=== PATIENT | male | born 1965 | race Caucasian/White ===

== ENCOUNTER 2020-07-11 00:49 | Day surgery (SDC) | payer BC, SELFPAY ==
[2020-07-08 08:38] VITALS: BMI 43.3
--- NOTE | 2020-07-10 12:05 | PM.IMHP ---
H&P: HPI History of Present Illness Date/Time: 07/10/20 12:05 left foot and heel pain. Continues to be a problem with weight-bearing and activity. Unrelieved with previous injection, physical therapy, inserts and home stretching. Presents now for operative treatment. Chief Complaint: Left heel pain Review of Systems Constitutional: Constitutional: Denies fever(s) Eyes: Eyes: Denies blurry vision ENT: Reports Normal hearing present Cardiovascular: Cardiovascular: Denies chest pain and Denies dyspnea Respiratory: Respiratory: Denies dyspnea and Denies wheezing Gastrointestinal: Gastrointestinal: Denies abdominal pain Genitourinary: Genitourinary: Denies urinary urgency Musculoskeletal: Musculoskeletal: Reports as per HPI and Denies numbness Integumentary/Breasts: Skin/Breast: Denies changing lesions and Denies sores Neurologic: Reports Normal hearing present, Denies behavioral changes, Denies confusion, Denies numbness and Denies convulsions Psychiatric: Psychiatric: Denies behavioral changes, Denies confusion and Denies hallucinations Endocrine: Endocrine: Denies heat intolerance Hematologic/Lymphatic: Hematologic/Lymphatic: Denies easy bleeding Allergic/Immunologic: Allergic/Immunologic: Denies wheezing PMFSH Past Medical History Medical History Arthritis Depression Ganglion cyst of right foot High cholesterol Hypertension Intractable heel pain Plantar fasciitis of left foot Sleep disorder Vision abnormalities Weight gain Surgical History Surgical History H/O arthroscopy of right knee History of bladder repair surgery History of colonoscopy History of hernia repair History of knee surgery ACL repair S/P ACL reconstruction Family History Family History Other Arthritis Diabetes mellitus Hypertension Hypothyroidism Malignant neoplasm Social History Social History Smoking status: Never smoker Tobacco type: smokeless tobacco Smokeless tobacco user: chewing tobacco Alcohol intake: current Drinks per week: 8 Substance use: never Substance use type: does not use Gender identity (if verbalized by the patient): Male Spiritual care concerns: No Meds Home Medications and Allergies Home Medications Medication Instructions Recorded Confirmed Type bupropion HCl 150 mg tablet,12 hr 150 mg PO DAILY 09/06/19 07/08/20 History sustained-release lisinopril 5 mg tablet 5 mg PO DAILY 09/06/19 07/08/20 History diclofenac sodium [Voltaren] 50 mg PO DAILY 07/08/20 07/08/20 History Allergies Allergy/AdvReac Type Severity Reaction Status Date / Time midazolam [From Versed] AdvReac Intermediate combative Verified 07/08/20 08:36 Exam Const: General: healthy appearing; No in distress or confusion Orientation/consciousness: oriented to person, oriented to place, oriented to time and No confusion HENMT: Head: normal to inspection, normocephalic and atraumatic Eyes: Conjunctivae: conjunctivae normal Sclera: sclerae normal Neck: Neck: supple and nontender Resp: Effort & Inspection: normal respiratory effort and no audible wheezes Cardio: Rate: regular rate Rhythm: regular rhythm Skin: General skin exam: no rashes or lesions noted Neuro: General: oriented to person, oriented to place, oriented to time and No confusion Extrem: Right upper extremity: normal to inspection Left upper extremity: normal to inspection Right lower extremity: normal to inspection, normal capillary refill, ankle Details: normal to inspection and normal ROM (Dorsiflexion -5 , planter flexion 50, inversion 20, E version 10 ); no tenderness and no swelling and foot Details: vascular exam (2+ dorsalis pedis pulse ) Details: dorsalis pedis pulse present and normal capillary r
--- NOTE | 2020-07-11 06:08 | ECG_ITS ---
Measurements Intervals [place] Rate: 69 P: -1 MN: 171 QRS: 25 QRSD: 100 T: 30 QT: 427 QTc: 458 Interpretive Statements SINUS RHYTHM BASELINE ARTIFACT- I, II, III, AVL, AVF NORMAL ECG Electronically Signed On 07-11-2020 7:22:41 CDT by Jesus Li D.O.
[2020-07-11 06:17] VITALS: BP 169/100; PULSE 69; RESP 20; TEMP 36.7; O2SAT 100
[2020-07-11] MEDS: ACETAMINOPHEN 500 MG TABLET 1000 MG PO (06:35)
[2020-07-11] MEDS: LACTATED RINGERS 1,000 ML 30 ML IV CONT (06:40)
[2020-07-11] MEDS: KETOROLAC 15 MG/ML VIAL (*BKC) IV PUSH (06:44)
--- NOTE | 2020-07-11 07:02 | WPDANESEPPF ---
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 Patient Data Age: 55 Gender: M Height: 6 ft Weight: 145 kg Allergies Allergy/AdvReac Type Severity Reaction Status Date / Time midazolam [From Versed] AdvReac Intermediate combative Verified 07/11/20 06:15 Home Medications Medication Instructions Recorded Confirmed Type bupropion HCl 150 mg tablet,12 hr 150 mg PO DAILY 09/06/19 07/11/20 History sustained-release lisinopril 5 mg tablet 5 mg PO DAILY 09/06/19 07/11/20 History diclofenac sodium [Voltaren] 50 mg PO DAILY 07/08/20 07/11/20 History Patient hx anesthesia problems: none Family hx anesthesia problems: none PMFSH Past Medical History Medical History Arthritis Depression Ganglion cyst of right foot High cholesterol Hypertension Intractable heel pain Plantar fasciitis of left foot Sleep disorder Vision abnormalities Weight gain Surgical History Surgical History H/O arthroscopy of right knee History of bladder repair surgery History of colonoscopy History of hernia repair History of knee surgery ACL repair S/P ACL reconstruction Family History Family History Other Arthritis Diabetes mellitus Hypertension Hypothyroidism Malignant neoplasm Social History Social History Smoking status: Never smoker Tobacco type: smokeless tobacco Smokeless tobacco user: chewing tobacco Alcohol intake: current Drinks per week: 8 Substance use: never Substance use type: does not use Living arrangements: with family Gender identity (if verbalized by the patient): Male Spiritual care concerns: No Anes - Eval Final PreProcedure Day of Procedure 07/11/20 07:02 Patient weight: morbidly obese Heart: regular rate and rhythm Lungs: clear to auscultation Airway: Mallampati scale class III Neurological: alert and oriented Last oral intake: >/= 8 hours ASA classification: III Emergent: no Anesthetic plan: proceed Anesthesia type and monitoring: general LMA (or ETT) and standard monitoring Informed Consent: The patient's anesthetic plan and its attendant risks and benefits were discussed with the patient/family/POA. Questions were solicited and answers provided to the satisfaction of the patient/family/POA.
--- NOTE | 2020-07-11 07:22 | WPDHPUPDATE1 ---
History and Physical Update Update Date/Time: 07/11/20 07:22 History and Physical has been reviewed, including an updated exam of the patient. There are NO changes in the patient's condition. Risks, benefits, and alternatives have been discussed and questions answered. Patient agrees to proceed with procedure.
[2020-07-11 07:54] VITALS: BP 126/67; PULSE 78; RESP 14; TEMP 36.7; O2SAT 99
[2020-07-11 08:05] VITALS: BP 127/81; PULSE 71; RESP 14; O2SAT 96
--- NOTE | 2020-07-11 08:08 | PM.PROC ---
Procedure Note - Detailed Date of procedure: 07/11/20 Pre-op diagnosis: left plantar fascial fibromatosis Post-op diagnosis: same Procedure performed: Left heel [place] shockwave treatment Description of procedure: Indications: Patient is a 55-year-old gentleman with recalcitrant left plantar heel pain and plantar fasciitis. He has failed conservative treatment with therapy, home stretching exercises, inserts and medication. Presents now for [place] shockwave. What was done: Patient identified in the preoperative holding. Informed consent given. Operative extremity marked. Patient identified the area of maximum tenderness on the plantar left heel. This was marked with a felt pen. Patient brought to the operating room where underwent general anesthetic by anesthesia team. Positioned supine on operating room table. Time-out performed confirming the patient, site of the surgery and the plan. Ultrasound gel applied to the left plantar heel. The shockwave unit was placed into position. Two thousand shockwave units were delivered to the plantar left heel an average of 19 kilavolts per Shock. The ultrasound gel was then removed. Patient woke from anesthesia and transported to recovery room in stable condition. Anesthesia: GLMA Surgeon: Cristian Dupree MD Estimated blood loss (mL): 0 Tourniquet time (min): 0 Drains: No Packing: No Pathology: none sent Complications: None Condition: stable Disposition: PACU
[2020-07-11 08:12] VITALS: BP 152/102; PULSE 72; RESP 14
[2020-07-11 08:35] VITALS: BP 145/95; PULSE 73; RESP 14
== END 2020-07-11 08:43 | disposition home or self-care (01) ==
PROVIDERS: Visit Provider Orthopaedic Surgery
PROC: (CPT 28890; principal; 2020-07-11 07:30)
DX: M72.2 Plantar fascial fibromatosis (principal); I10 Essential (primary) hypertension; E78.00 Pure hypercholesterolemia, unspecified; F32.9 Major depressive disorder, single episode, unspecified; F17.220 Nicotine dependence, chewing tobacco, uncomplicated
CPT/HCPCS: 28890; 93005; A9270; J1885; J2405; J2704; J3010; J7120